=== PATIENT | female | born 1960 | race Caucasian/White ===

== ENCOUNTER 2020-11-24 08:24 | Day surgery (SDC) | payer MEDICARE, MEDICAID ==
[2020-11-17 12:38] LABS: BASOPHILS # (AUTO) 0.1 X10'3 (0-0.2); EOSINOPHILS # (AUTO) 0.2 X10'3 (0-0.9); EOSINOPHILS % (AUTO) 4.3 % (0-6); LYMPHOCYTES # (AUTO) 2.2 X10'3 (1.1-4.8); LYMPHOCYTES % (AUTO) 39.5 % (21-51); MEAN CORPUSCULAR HEMOGLOBIN 31.2 PG (27.0-31.0); MEAN CORPUSCULAR HGB CONC 32.9 g/dL (33.0-36.5); MEAN CORPUSCULAR VOLUME 94.9 FL (78-98); MEAN PLATELET VOLUME 7.1 FL (7.4-10.4); MONOCYTES # (AUTO) 0.5 X10'3 (0-0.9); MONOCYTES % (AUTO) 8.8 % (2-12); NEUTROPHILS # (AUTO) 2.6 X10'3 (1.8-7.7); NEUTROPHILS % (AUTO) 46.4 % (42-75); PRE OP HEMATOCRIT 39.8 % (35.0-45.0); PRE OP HEMOGLOBIN 13.1 g/dL (12.0-16.0); PRE OP PLATELET COUNT 303 X10'3 (140-440); RED CELL DISTRIBUTION WIDTH 15.1 % (11.5-14.5)
[2020-11-17 12:46] LABS: ALBUMIN 3.9 G/DL (3.4-5.0); ALBUMIN/GLOBULIN RATIO 1.3 (1.1-1.5); ALKALINE PHOSPHATASE 119 IU/L (46-116); BLOOD UREA NITROGEN 11 MG/DL (7-18); BUN/CREATININE RATIO 12.9 (6.6-38.0); CALCIUM 8.8 MG/DL (8.5-10.1); CHLORIDE 104 MMOL/L (99-107); CREATININE 0.85 MG/DL (0.40-0.90); PRE OP ALT 47 U/L (30-65); PRE OP ANION GAP 10 (8-16); PRE OP AST 34 U/L (10-37); PRE OP BILIRUB, TOTAL 0.5 MG/DL (0.0-1.0); PRE OP GLUCOSE 85 MG/DL (70-104); PRE OP POTASSIUM 3.8 MMOL/L (3.4-5.1); PRE OP SODIUM 140 MMOL/L (135-145); eGFR 68 ML/MIN
[2020-11-24] VITALS (8 sets, daily range): BP systolic 120–137; BP diastolic 72–99
[~2020-11-24] VITALS: Ht 157.5 cm; Wt 69.4 kg
[~2020-11-24 08:24] MED LIST: ASPI-144 PO; BUPIVAcaine/PF 2.5 mg/ml (0.25%) 30ml vial ONE; GABA300C PO; LIDOcaine 1% 30ml preserv. free vial ONE; LORA-269 PO; MULT-1085 PO; PARO30TA73 PO; ROBAXIN PO; TRAM50TA2 PO; TRAZ-251 PO; ZOLP5TAB8 PO; cefazolin/dext.iso 2gm/100ml IV ONE; famotidine 20mg tablet PO ONE; ringers solution, lacted 1,000 ML IV SCH
[2020-11-24] MEDS ORDERED: diazepam 5mg tablet PO ONE (09:20)
[2020-11-24] MEDS ORDERED: fentaNYL/PF 50MCG/1 ML 2ML syringe ONE (10:11)
[2020-11-24] MEDS ORDERED: MIDAZolam 1 MG/ML 5ML VIAL ONE (10:11)
[2020-11-24] MEDS ORDERED: propofol inj 20 ML IV ONE (10:24)
--- NOTE | 2020-11-24 10:37 | NUR ---
Received from OR via [facility] IN STABLE CONDITION , accompanied by Anesthesiologist and [employer] P[employer] MACHINE OPERATOR report given by Khari. Addendum: 11/24/20 at 1119 by Karly Fernandez RN Amended: Links added.
--- NOTE | 2020-11-24 11:37 | NUR ---
PATIENT DISCHARGED FROM PACU IN STABLE CONDITION AFTER WRE
--- NOTE | 2020-11-24 11:37 | NUR ---
PATIENT DISCHARGED FROM PACU IN STABLE CONDITION AFTER WRITTEN AND VERBAL DISCHARGE INSTRUCTIONS GIVEN. PATIENT GAVE VERBAL UNDERSTANDING OF INSTRUCTIONS. PATIENT LEFT FACILITY VIA WHEELCHAIR WITH VOLUNTEER. Addendum: 11/24/20 at 1154 by Karly Fernandez RN Amended: Links added.
[2020-11-25] MEDS ORDERED: albuterol 2.5 MG/3 ML nebule NEB ONE (05:30)
== END 2020-11-24 11:37 | disposition home or self-care (01) ==
LOC: PAS 08:24
PROVIDERS: ATTEND Orthopaedic Surgery Hand Surgery
DX: M65.311 Trigger thumb, right thumb (principal); F17.210 Nicotine dependence, cigarettes, uncomplicated; J45.909 Unspecified asthma, uncomplicated; F41.9 Anxiety disorder, unspecified; F32.9 Major depressive disorder, single episode, unspecified; G43.909 Migraine, unspecified, not intractable, without status migrainosus; M19.90 Unspecified osteoarthritis, unspecified site; M85.80 Other specified disorders of bone density and structure, unspecified site; Z98.84 Bariatric surgery status; Z98.890 Other specified postprocedural states; Z87.440 Personal history of urinary (tract) infections; Z87.442 Personal history of urinary calculi; Z88.5 Allergy status to narcotic agent; Z79.899 Other long term (current) drug therapy
CPT/HCPCS: 26055; 36415; 80053; 85025; 93005; A6222; J2001; J2250; J2704; J3010; J3490; A4215; J7120